=== PATIENT | female | born 1985 | race Asian ===

== ENCOUNTER 2016-06-01 00:10 | Inpatient (IN) | payer SELFPAY ==
[~2016-06-01] VITALS: Ht 161 cm; Wt 60.8 kg
[2016-06-01] MEDS ORDERED: OXYTOCIN 10 UNITS/ML VIAL IM SCH (00:30)
[2016-06-01] MEDS ORDERED: MISOPROSTOL 25 MCG TAB VG PRN (00:30)
[2016-06-01] MEDS ORDERED: NALBUPHINE HYDROCHLORIDE 10 MG/ML VIAL IVP PRN (00:30)
[2016-06-01] MEDS ORDERED: PROMETHAZINE 25 MG/ML VIAL IVP PRN (00:30)
[2016-06-01] MEDS ORDERED: OXYTOCIN 20 UNITS/LR PREMIX 1,000 ML IV SCH (00:30)
[2016-06-01] MEDS: LACTATED RINGERS 1,000 ML IV SCH ×2 (01:36→03:29)
[2016-06-01] MEDS ORDERED: OXYTOCIN 20 UNITS/LR PREMIX 1,000 ML IV ONE (01:40)
[2016-06-01 02:13] VITALS: BP 116/76
[2016-06-01] MEDS ORDERED: INFLUENZA VIRUS VACCINE QUAD 0.5 ML SYR IMVAC SCH (02:15)
[2016-06-01] MEDS ORDERED: ROPIVACAINE 0.2%/NS PREMIX 250 ML EPI ONE (02:27)
[2016-06-01] MEDS ORDERED: ROPIVACAINE 0.2%/NS PREMIX 250 ML EPI SCH (02:50)
[2016-06-01] MEDS ORDERED: PROMETHAZINE 25 MG/ML VIAL ONE (06:13)
[2016-06-01] MEDS ORDERED: OXYTOCIN 10 UNITS/ML VIAL ONE (07:21)
--- NOTE | 2016-06-01 09:07 | NUR ---
PATIENT HAS BEEN SCREENED AND CATEGORIZED LOW NUTRITION RISK. PATIENT WILL BE SEEN WITHIN 7 DAYS OF ADMISSION. 06/07/[address]
[2016-06-01] MEDS ORDERED: WITCH HAZEL 40 PAD PACKAGE TP PRN (20:15)
[2016-06-01] MEDS ORDERED: BENZOCAINE/MENTHOL 20%-0.5% 60 GM CAN TP PRN (20:15)
[2016-06-01] MEDS ORDERED: IBUPROFEN 800 MG TAB PO PRN (20:15)
[2016-06-01] MEDS ORDERED: oxyCODONE/APAP 5/325 MG 1 TAB TAB PO PRN (20:15)
[2016-06-01] MEDS ORDERED: OXYTOCIN 10 UNITS/ML VIAL IM PRN (20:15)
[2016-06-01] MEDS ORDERED: METHYLERGONOVINE 0.2 MG/ML AMP IM PRN (20:15)
[2016-06-01] MEDS ORDERED: HYDROcodone/APAP 5/325 MG 1 TAB TAB PO PRN (20:15)
[2016-06-01] MEDS ORDERED: MEASLES, MUMPS, AND RUBELLA 1 VIAL SQVAC PRN (20:15)
[2016-06-01] MEDS ORDERED: TEMAZEPAM 15 MG CAP PO PRN (20:15)
[2016-06-01] MEDS ORDERED: DOCUSATE SOD/SENNA 50/8.6 MG 1 TAB PO SCH (21:00)
== END 2016-06-02 23:10 | disposition home or self-care (01) | DRG 775 ==
LOC: MLD 00:10 → MFCC 20:35
PROVIDERS: ADMIT Obstetrics & Gynecology; ATTEND Obstetrics & Gynecology
PROC: 10E0XZZ Delivery of Products of Conception, External Approach (ICD-10-PCS; principal; 2016-06-01)
PROC: 10907ZC Drainage of Amniotic Fluid, Therapeutic from Products of Conception, Via Natural or Artificial Opening (ICD-10-PCS; 2016-06-01)
PROC: 0W8NXZZ Division of Female Perineum, External Approach (ICD-10-PCS; 2016-06-01)
PROC: 00HU33Z Insertion of Infusion Device into Spinal Canal, Percutaneous Approach (ICD-10-PCS; 2016-06-01)
PROC: 3E0R3CZ (ICD-10-PCS; 2016-06-01)
DX: O69.81X0 Labor and delivery complicated by cord around neck, without compression, not applicable or unspecified (principal); Z3A.40 40 weeks gestation of pregnancy; Z37.0 Single live birth; Z28.82 Immunization not carried out because of caregiver refusal